=== PATIENT | female | born 1985 | race Two or more races ===

== ENCOUNTER 2019-09-10 16:21 | Emergency (ER) | payer OTHER ==
[~2019-09-10] VITALS: Ht 160 cm; Wt 74.8 kg
[2019-09-10 16:45] VITALS: BP 118/63
[2019-09-10 16:52] LABS: COLOR,URINE ORANGE
[2019-09-10 16:55] LABS: RBC,URINE TNTC /HPF (0-2)
[2019-09-10 16:56] LABS: BACTERIA,URINE FEW /HPF (0-FEW); SQUAMOUS EPITHELIAL CELL,UR FEW /LPF
[2019-09-10 16:57] LABS: CLARITY,URINE HAZY; WBC,URINE >40 /HPF (0-4)
[2019-09-10] MEDS ORDERED: CEPH-264 PO (17:12)
--- NOTE | 2019-09-10 17:12 | PHYS DOC ---
Past Medical History Past Medical History: No Pertinent History Past Surgical History: No Surgical History Alcohol Use: None Drug Use: None Adult General Chief Complaint Chief Complaint: PAIN ON URINATION HPI HPI Patient is a 34 year old female who presents with frequent urinary tract infections. Patient states she started having burning with urination and back pain. Patient states she took AZO. Rates her pain 5/10. Review of Systems Review of Systems GI: Low mid abdominal pain, nausea, denies vomiting, bloody stools or diarrhea [] : dysuria or hematuria [] Musculoskeletal: Bilateral back pain or joint pain [] All other systems were reviewed and found to be within normal limits, except as documented in this note. Allergies Allergies Allergies Coded Allergies Type Severity Reaction Last Updated Verified No Known Drug Allergies 02/02/15 No Physical Exam Physical Exam Constitutional: Well developed, well nourished, no acute distress, non-toxic appearance. [] HENT: Normocephalic, atraumatic, bilateral external ears normal, oropharynx moist, no oral exudates, nose normal. [] Eyes: PERRLA, EOMI, conjunctiva normal, no discharge. [] Neck: Normal range of motion, no tenderness, supple, no stridor. [] Cardiovascular:Heart rate regular rhythm, no murmur [] Lungs & Thorax: Bilateral breath sounds clear to auscultation [] Abdomen: Bowel sounds normal, soft, no tenderness, no masses, no pulsatile masses. [] Skin: Warm, dry, no erythema, no rash. [] Back: No tenderness, no CVA tenderness. [] Extremities: No tenderness, no cyanosis, no clubbing, ROM intact, no edema. [] Neurologic: Alert and oriented X 3, normal motor function, normal sensory function, no focal deficits noted. [] Psychologic: Affect normal, judgement normal, mood normal. Normal Physical Exam Current Patient Data Vital Signs Vital Signs Date Time Temp Pulse Resp B/P (MAP) Pulse Ox O2 Delivery O2 Flow Rate FiO2 09/10/19 16:45 98.4 77 18 118/63 (81) 99 Room Air 98.4 Lab Values Laboratory Tests Test 09/10/19 16:22 09/10/19 16:39 Urine Collection Type Unknown Urine Color [place] Urine Clarity Hazy Urine pH Urine Specific [place] Urine Protein mg/dL (NEG-TRACE) Urine Glucose (UA) mg/dL (NEG) Urine Ketones (Stick) mg/dL (NEG) Urine Blood (NEG) Urine Nitrite (NEG) Urine Bilirubin (NEG) Urine Urobilinogen Dipstick mg/dL (0.2 mg/dL) Urine Leukocyte Esterase (NEG) Urine RBC Tntc /HPF (0-2) Urine WBC >40 /HPF (0-4) Urine Squamous Epithelial Cells Few /LPF Urine Bacteria Few /HPF (0-FEW) POC Urine HCG, Qualitative Hcg negative (Negative) EKG EKG [] Radiology/Procedures Radiology/Procedures [] Course & Med Decision Making Course & Med Decision Making Abdomen is soft and nontender. No CVA tenderness. Skin pink warm and dry. Ambulatory and steady gait. Afebrile vital signs within normal limits. Patient denies vomiting, diarrhea, chest pain, shortness of air, fever. Speaks in full clear sentences. Mucus membranes moist. Alert and oriented. She has a urinary tract infection. She is given Keflex and told to drink plenty of fluids. Follow up with her primary care doctor if needed. Dragon Disclaimer Dragon Disclaimer This electronic medical record was generated, in whole or in part, using a voice recognition dictation system. Departure Departure Impression: Primary Impression: UTI (urinary tract infection) Disposition: HOME, SELF-CARE Condition: STABLE Referrals: JENNIFER FLOYD MD (PCP) Patient Instructions: Urinary Tract Infection Additional Instructions: Follow up with primary care provider. Drink plenty of fluids. Scripts Cephalexin (KEFLEX) 500 Mg Capsule 1 CAP PO BID for 7 Days, #14 CAP 0 Refills Prov: STEPHON ALEMAN APRN 09/10/19 Problem Qualifiers Primary Impression: UTI (urinary tract infection) Urinary tract infection type: site unspecified Hematuria presence: without hematuria Qualified Codes: N39.0 - Urinary tract infection, site not specified STEPHON ALEMAN [employer] Sep 10, 2019 17:12
== END 2019-09-10 17:20 | disposition home or self-care (01) ==
LOC: ER 16:21
DX: N39.0 Urinary tract infection, site not specified (principal); Z87.442 Personal history of urinary calculi
CPT/HCPCS: 81001; 81025; 87086; 99284

== ENCOUNTER 2021-09-29 23:00 | Emergency (ER) | payer OTHER ==
[~2021-09-29] VITALS: Ht 160 cm; Wt 75.5 kg
[~2021-09-29 23:00] MED LIST: CEPH-264 PO
--- NOTE | 2021-09-30 03:36 | PHYS DOC ---
Past Medical History Past Medical History: No Pertinent History Past Surgical History: Other Additional Past Surgical Histo: WISDOME TEETH Smoking Status: Never Smoker Alcohol Use: None Drug Use: None General Adult EDM: Chief Complaint: FLU SYMPTOM HPI: HPI: Patient is a 36 year old female who presents with 1 week history of myalgias, headache, fevers and chills. She has a fever here. She has not had any Tylenol since yesterday morning around 10 AM. No ibuprofen taken. She denies abdominal pain, vomiting, diarrhea, constipation. She denies sore throat. She reports that all of her body aches. She has not been vaccinated against Covid, nor has she been vaccinated against influenza. 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 She denies cough. She denies chest pain or dyspnea. LMP within the last month. She does report some urinary urgency. No changes in symptoms today. Review of Systems: Review of Systems: Constitutional: Fever and chills. Eyes: Denies change in visual acuity. [] HENT: Denies nasal congestion or sore throat. [] Respiratory: Denies cough or shortness of breath. [] Cardiovascular: Denies chest pain or edema. [] GI: Denies abdominal pain or vomiting. She does report mild nausea. Denies diarrhea constipation. : Urinary urgency. Denies dysuria. Musculoskeletal: Reports diffuse myalgias and diffuse back pain. Integument: Denies rash. [] Neurologic: Reports headache, denies focal weakness or sensory changes. [] Psychiatric: Denies depression or anxiety. [] Heart Score: C/O Chest Pain: No Risk Factors: Risk Factors: DM, Current or recent (<one month) smoker, HTN, HLP, family history of CAD, obesity. Risk Scores: Score 0 - 3: 2.5% MACE over next 6 weeks - Discharge Home Score 4 - 6: 20.3% MACE over next 6 weeks - Admit for Clinical Observation Score 7 - 10: 72.7% MACE over next 6 weeks - Early Invasive Strategies Allergies: Allergies: Allergies Coded Allergies Type Severity Reaction Last Updated Verified No Known Drug Allergies 02/02/15 No Physical Exam: PE: Constitutional: Well developed, well nourished, no acute distress, non-toxic appearance. [] HENT: Normocephalic, atraumatic, oropharynx patent and clear without exudate or erythema. TMs are clear bilaterally Eyes: PERRL, EOMI, conjunctiva normal, no discharge. [] Neck: Normal range of motion, no tenderness, supple, no stridor. Trachea is midline. No meningismus Cardiovascular:Heart rate regular rhythm, +2 radial and +2 posterior tibial pulses bilaterally, warm and well-perfused appearing. Lungs & Thorax: Bilateral breath sounds clear to auscultation, no rales, rhonchi or wheezes. Equal chest rise. No distress. Abdomen: Abdomen soft, nondistended, nontender to palpation, no CVA tenderness. Skin: Warm, dry, no erythema, no rash. [] Back: No tenderness, no CVA tenderness. [] Extremities: No tenderness, no cyanosis, no clubbing, ROM intact, no edema. No calf tenderness. Neurologic: Alert and oriented X 3, normal motor function, normal sensory function, no focal deficits noted. [] Psychologic: Affect is flat. [] Current Patient Data: Vital Signs: Vital Signs Date Time Temp Pulse Resp B/P (MAP) Pulse Ox O2 Delivery O2 Flow Rate FiO2 09/30/21 00:38 100.1 89 18 110/69 (83) 97 Room Air 100.1 EKG: EKG: [] Radiology/Procedures: Radiology/Procedures: [] Course & Med Decision Making: Course & Med Decision Making Pertinent Labs and Imaging studies reviewed. (See chart for details) IM Toradol and p.o. [place] given. I discussed the findings, differential diagnosis and plan of care with the patient. I told her she should stay home, away from work, until she is fever free for at least 48 hours, without the use of antipyretics. Covid PCR is pending, antigen is negative here. I discussed supportive care for influenza and for fever control at home. She is to stay well-hydrated. She is to get plenty of rest. She should avoid going to work, avoid contact with vulnerable or immune compromised population. Return precautions are given Dragon Disclaimer: Dragon Disclaimer: This electronic medical record was generated, in whole or in part, using a voice recognition dictation system. Departure Departure Impression: Primary Impression: Influenza due to influenza virus, type B Disposition: 01 HOME / SELF CARE / HOMELESS Condition: STABLE Referrals: JENNIFER FLOYD MD (PCP) Patient Instructions: Fever, Fever, Adult, Influenza A (H1N1) Additional Instructions: Use the medications as needed/as directed. You have influenza type B. There is no specific treatment or cure for this, the virus needs to run its course. You should stay home, avoid contact with children, immunocompromised people, he should not return to work. Your PCR Covid swab is pending, should return in about 24 hours. Your rapid Covid antigen test is negative here today. You should not return to school until you are fever free for over 48 hours, without the use of antipyretics i.e. without the use of Tylenol or ibuprofen to help control your fever. Stay well-hydrated, drink plenty of fluids, get plenty of r est. Return to the ER for chest pain, shortness of breath, uncontrolled vomiting, dehydration, or any other concerns. Follow-up with your primary care physician. Scripts Hydrocodone Bit/Acetaminophen (HYDROCODONE-APAP 5-325 ) 1 Tab Tablet 1 TAB PO PRN Q6HRS PRN for PAIN, #12 TAB 0 Refills Prov: MILLIE HYDE DO 09/30/21 Ondansetron Hcl (ZOFRAN) 4 Mg Tablet 4 MG PO PRN TID PRN for VOMITING, #20 TAB nausea/vomiting Prov: MILLIE HYDE DO 09/30/21 MILLIE HYDE DO Sep 30, 2021 03:36
[2021-09-30] MEDS ORDERED: HYDROcodone/APAP 5/325MG 1 TAB TABLET PO ONE (03:45)
[2021-09-30] MEDS ORDERED: KETOROLAC 60 MG/2 ML VIAL. IM ONE (03:45)
[2021-09-30 04:12] LABS: INFLUENZA A PATIENT NEGATIVE (NEGATIVE)
[2021-09-30 04:18] LABS: INFLUENZA B PATIENT POSITIVE (NEGATIVE)
[2021-09-30 04:26] LABS: BILIRUBIN,URINE NEGATIVE (NEG); CLARITY,URINE CLOUDY; COLOR,URINE YELLOW; NITRITE,URINE NEGATIVE (NEG); PROTEIN,URINE NEGATIVE (NEG-TRACE)
[2021-09-30 04:33] LABS: U PREG PATIENT NEGATIVE (NEG)
[2021-09-30 04:36] LABS: BACTERIA,URINE 0 /HPF (0-FEW)
[2021-09-30] MEDS ORDERED: ONDA4TAB7 PO (05:14)
[2021-09-30] MEDS ORDERED: HYDR-2761 PO (05:14)
[2021-09-30 05:43] VITALS: BP 97/54
--- NOTE | 2021-09-30 16:08 | NUR ---
IP: Informed pt of negative covid test. Pt verbalized understanding.
== END 2021-09-30 05:43 | disposition home or self-care (01) ==
LOC: ER 23:00
DX: J11.1 Influenza due to unidentified influenza virus with other respiratory manifestations (principal); Z20.822 Contact with and (suspected) exposure to COVID-19
CPT/HCPCS: 81001; 81025; 87086; 87426; 87804; 96372; 99283; J1885; U0003; U0005